=== PATIENT | female | born 1940 | race Caucasian/White ===

== ENCOUNTER → 2016-08-29 | Outpatient (CLI) | payer MEDICARE ==
[~2016-08-29] MED LIST: ASPIRIN (CHILDR81 MG PO; CALCIUM 600 +1 EA15 PO; CORDARONE,PACE200 MG PO; COUMADIN ** 9/62 MG PO; DAILY MULTIVIT1 EAC1 PO; FISH OIL 1,0001 EAC5 PO; GLUCOSAMINE S1000 M1 PO; IPRAT-ALBUT 0.5-3 ML INH; K-TAB 10MEQ10 MEQ PO; LASIX40 MG PO; LEVOTHROID (SY25 MCG PO; LIPITOR20 M1 PO; MIDODRINE HCL10 MG PO; NEURONTIN100 MG PO; OXYGEN M-15 INH; SPIRIVA HANDIHA1 KIT INH; SYMBICORT 16010.2 GM INH; TOPROL XL25 MG PO; VITAMIN C1000 MG PO; VITAMIN D1000 UNIT PO; XANAX0.25 MG PO; ZOLOFT50 MG PO; ZYRTEC10 M3 PO
== END | disposition disaster alternative care site (69) ==
LOC: GAIR 16:21
DX: I49.9 Cardiac arrhythmia, unspecified (principal); I10 Essential (primary) hypertension; E78.5 Hyperlipidemia, unspecified; E03.9 Hypothyroidism, unspecified; F32.9 Major depressive disorder, single episode, unspecified; J44.9 Chronic obstructive pulmonary disease, unspecified; R50.9 Fever, unspecified; R00.2 Palpitations; Z85.42 Personal history of malignant neoplasm of other parts of uterus; Z95.2 Presence of prosthetic heart valve; Z90.710 Acquired absence of both cervix and uterus; Z98.1 Arthrodesis status; Z79.82 Long term (current) use of aspirin; Z79.899 Other long term (current) drug therapy; Z88.1 Allergy status to other antibiotic agents; Z88.0 Allergy status to penicillin; Z88.6 Allergy status to analgesic agent
CPT/HCPCS: A0422; A0431; A0436; J2405